=== PATIENT | male | born 1970 | race Caucasian/White ===

== ENCOUNTER 2019-01-29 09:04 | Emergency (ER) | payer OTHER ==
[~2019-01-29] VITALS: Ht 172.7 cm; Wt 91.2 kg
[~2019-01-29 09:04] MED LIST: IBUP800T48 PO
[2019-01-29 09:07] VITALS: BP 147/74; PULSE 67; RESP 18; Ht 172.7 cm; Wt 91.2 kg
[2019-01-29] MEDS ORDERED: IBUPROFEN 800 MG TAB PO ONE (09:30)
== END 2019-01-29 10:38 | disposition home or self-care (01) ==
LOC: FTE 09:04
DX: M25.561 Pain in right knee (principal)
CPT/HCPCS: 73562